=== PATIENT | female | born 1965 | race Caucasian/White ===

== ENCOUNTER 2021-10-03 17:57 | Emergency (ER) | payer BC ==
[~2021-10-03] VITALS: Ht 170.2 cm; Wt 65.8 kg
[~2021-10-03 17:57] MED LIST: ALDACTONE50 MG PO; SYNTHROID88 MCG PO; ZOFRAN ODT4 MG PO
[2021-10-03] MEDS ORDERED: SYNTHROID100 MC1 PO (18:07)
[2021-10-03] MEDS ORDERED: AUGMENTIN 875-1 EACH PO (21:20)
[2021-10-03] MEDS ORDERED: HYDROCODON-ACE1 EAC7 PO (21:33)
[2021-10-03 21:49] VITALS: BP 148/99
== END 2021-10-03 21:50 | disposition home or self-care (01) ==
LOC: M.ERS 17:57
DX: S81.812A Laceration without foreign body, left lower leg, initial encounter (principal); S81.811A Laceration without foreign body, right lower leg, initial encounter; S41.012A Laceration without foreign body of left shoulder, initial encounter; E03.9 Hypothyroidism, unspecified; Z79.899 Other long term (current) drug therapy; Z88.5 Allergy status to narcotic agent; W54.0XXA Bitten by dog, initial encounter; Y93.89 Activity, other specified; Y92.89 Other specified places as the place of occurrence of the external cause; Y99.9 Unspecified external cause status